=== PATIENT | male | born 1990 | race Caucasian/White ===

== ENCOUNTER 2017-04-26 20:34 | Emergency (ER) | payer OTHER ==
[2017-04-26] MEDS ORDERED: EPINEPHrine HCL (1:10,000) 1 MG/10 ML SYRINGE IV ONE ×2 (20:35)
[2017-04-26] MEDS ORDERED: SUCCINYLCHOLINE CHLORIDE 100 MG/5 ML SYRINGE IV PUSH ONE (20:35)
[2017-04-26] MEDS ORDERED: LORazepam 2 MG/ML VIAL IV PUSH ONE (20:35)
[2017-04-26] MEDS ORDERED: ETOMIDATE 20 MG/10 ML VIAL IV PUSH ONE (20:35)
[2017-04-26] MEDS ORDERED: SODIUM BICARBONATE 8.4% INJ 50 MEQ/50 ML SYR IV ONE (20:35)
[2017-04-26] MEDS ORDERED: CALCIUM CHLORIDE 10% SOLN 1 GRAM/10 ML SYR IV ONE (20:35)
[2017-04-26] MEDS ORDERED: CALCIUM CHLORIDE 10% SOLN 1 GRAM/10 ML SYR ONE (20:47)
[2017-04-26 21:19] LABS: BASOPHIL % 0.5 % (0.0-2.0); EOSINOPHIL # 0.1 TH/MM3 (0-0.4); EOSINOPHIL % 2.4 % (0.0-4.0); HEMATOCRIT 35.6 % (39.0-51.0); LYMPH % 77.6 % (9.0-44.0); LYMPHOCYTE # 4.1 TH/MM3 (1.0-4.8); MEAN CELL VOLUME 93.2 FL (80.0-100.0); MEAN CORPUSCULAR HEMOGLOBIN 30.7 PG (27.0-34.0); MEAN CORPUSCULAR HGB CONC 32.9 % (32.0-36.0); MONO % 18.8 % (0.0-8.0); NEUT % 0.7 % (16.0-70.0); PLATELET COUNT 221 TH/MM3 (150-450); RED BLOOD COUNT 3.82 MIL/MM3 (4.50-5.90); RED CELL DISTRIBUTION WIDTH 12.9 % (11.6-17.2); WHITE BLOOD COUNT 5.3 TH/MM3 (4.0-11.0)
[2017-04-26 21:21] LABS: HEMO FLAGS AUTO DIFF
[2017-04-26 21:31] LABS: APTT (PATIENT) 31.1 SEC (24.3-30.1); INTERNATIONAL NORMALIZED RATIO 1.1 RATIO; PROTHROMBIN TIME - PATIENT 12.2 SEC (9.8-11.6)
[2017-04-26 21:32] LABS: I-STAT POTASSIUM 2.9 MMOL/L (3.5-4.9)
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
[2017-04-26 21:54] LABS: BASOPHILS 1 % (0-2); EOSINOPHILS 1 % (0-4); METAMYELOCYTES 2 % (0-1); NEUTROPHIL # MANUAL DIFF 0.6 TH/MM3 (1.8-7.7); POLYS (SEG NEUTROPHILS) 10 % (16-70); WBC DIFF SAMPLE 100
[2017-04-26 21:57] LABS: PLATELET ESTIMATE SMEAR NORMAL (NORMAL); PLATELET MORPHOLOGY NORMAL (NORMAL); SCAN/DIFF FINAL DIFF MANUAL
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
== END 2017-04-27 03:16 | disposition expired ==
LOC: NEPI 20:34 → EDBD 20:34 → NEPI 04-27 03:16
DX: S28.0XXA Crushed chest, initial encounter (principal); S22.41XA Multiple fractures of ribs, right side, initial encounter for closed fracture; S22.5XXA Flail chest, initial encounter for closed fracture; S36.899A Unspecified injury of other intra-abdominal organs, initial encounter; S27.0XXA Traumatic pneumothorax, initial encounter; T79.4XXA Traumatic shock, initial encounter; I95.9 Hypotension, unspecified; I46.9 Cardiac arrest, cause unspecified; V48.3XXA Unspecified car occupant injured in noncollision transport accident in nontraffic accident, initial encounter
CPT/HCPCS: 32551; 36430; 51702; 71010; 80307; 82435; 82565; 82947; 84132; 84295; 84520; 85007; 85027; 85384; 85610; 85730; 86850; 86900; 86901; 86920; 92950; 96374; 99291; A0431; A0436; J0171; J0330; J2060; P9016; P9017